=== PATIENT | male | born 1985 | race African-American/Black ===

== ENCOUNTER 2016-04-28 03:02 | Emergency (ER) | payer SELFPAY ==
[~2016-04-28] VITALS: Ht 175.3 cm; Wt 119.0 kg
[~2016-04-28 03:02] MED LIST: ZOFR4TAB3 SL
[2016-04-28 03:07] VITALS: BP 118/78; PULSE 85; RESP 16; TEMP 98.4; O2SAT 98
[2016-04-28 03:17] VITALS: BP 118/78; PULSE 85; RESP 18; TEMP 98.4; O2SAT 98
[2016-04-28] MEDS ORDERED: DOXY100C PO (03:35)
--- NOTE | 2016-04-28 03:35 | PD ---
HPI Chief Complaint: Complaint Time Seen by Provider: 03:30 Travel History International Travel<30 days: No Contact w/Intl Traveler<30days: No Traveled to known affect area: No History of Present Illness HPI The patient is a 30-year-old male that states he was "partying" in [place] and has now had a painful urethral discharge for 2 days. It hurts when he urinates. He also brought his partner in to be treated. He denies any fever, joint pain, skin rash, headache or any penile lesions. PFSH Past Medical History Diminished Hearing: No Immunizations Current: Yes Tetanus Vaccination: Unknown Influenza Vaccination: No Social History Alcohol Use: No Tobacco Use: Yes Substance Use: No Allergies-Medications (Allergen,Severity, Reaction): Coded Allergies: No Known Allergies (Verified , 04/28/16) Reported Meds & Prescriptions Reported Meds & Active Scripts Active No Active Prescriptions or Reported Medications Review of Systems Except as stated in HPI: all other systems reviewed are Neg Physical Exam Narrative GENERAL: Well-nourished, well-developed patient in no apparent distress except for his urethral discharge. His vital signs are normal. SKIN: Warm and dry. No skin rash is seen. HEAD: Normocephalic. EYES: No scleral icterus. No injection or drainage. NECK: Supple, trachea midline. No JVD or lymphadenopathy. CARDIOVASCULAR: Regular rate and rhythm without murmurs, gallops, or rubs. RESPIRATORY: Breath sounds equal bilaterally. No accessory muscle use. GASTROINTESTINAL: Abdomen soft, non-tender, nondistended. MUSCULOSKELETAL: No cyanosis, or edema. No joint swelling is noted. BACK: Nontender without obvious deformity. No CVA tenderness. GENITOURINARY: Circumcised. Testes descended bilaterally without evidence of rotation. No lesions or erythema. There is a off-white urethral discharge. No large nodes are present and no penile lesions are seen. Data Data Last Documented VS Vital Signs Date Time Temp Pulse Resp B/P Pulse Ox O2 Delivery O2 Flow Rate FiO2 04/28/16 03:20 85 18 04/28/16 03:17 98.4 118/78 98 MDM Medical Decision Making Medical Screen Exam Complete: Yes Emergency Medical Condition: Yes Medical Record Reviewed: Yes Differential Diagnosis Gonorrhea, nonspecific urethritis, lymphogranuloma venereumunlikely, syphilis unlikely Narrative Course The patient likely has nonspecific urethritis. This could also be early gonorrhea. Plan: Patient be given Rocephin, 1 g of Zithromax by mouth and a prescription for doxycycline. Diagnosis Primary Impression: Nonspecific urethritis Med/Other Pt SpecificInfo: Prescription(s) given Scripts Doxycycline Hyclate 100 Mg Xsg293 Mg PO BID #20 CAP Ref 0 Prov:Anatoly Salinas MD 04/28/16 Disposition: 01 DISCHARGE HOME Condition: Stable Anatoly Salinas MD Apr 28, 2016 03:35
[2016-04-28] MEDS ORDERED: AZITHROMYCIN PWD FOR SUSP 1 GM PACKET PO ONE (03:45)
[2016-04-28] MEDS ORDERED: LIDOCAINE HCL 1% 50 ML VIAL IM ONE (03:45)
[2016-04-28 04:20] VITALS: BP 119/75
== END 2016-04-28 04:22 | disposition home or self-care (01) ==
LOC: PHED 03:02
DX: N34.1 Nonspecific urethritis (principal)
CPT/HCPCS: 96372; 99283; J0696